=== PATIENT | male | born 1975 | race Caucasian/White ===

== ENCOUNTER 2018-08-05 19:42 | Emergency (ER) | payer MEDICAID ==
[~2018-08-05] VITALS: Ht 182.9 cm; Wt 137.3 kg
[~2018-08-05 19:42] MED LIST: AZIT250T PO; BETA45OI2 TOP; CYCL-1 PO; GABA-532 PO; METF500T PO; MICO5POW6 TOP; PANT40TA4 PO
[2018-08-05 19:45] VITALS: BP 157/95
[2018-08-05] MEDS ORDERED: IBUP-1984 PO (21:15)
[2018-08-05] MEDS ORDERED: HYDROcodone/acetaminophen 10/325mg tab PO ONE (21:20)
== END 2018-08-05 21:29 | disposition home or self-care (01) ==
LOC: ER 19:43
DX: M25.521 Pain in right elbow (principal); E78.00 Pure hypercholesterolemia, unspecified; I10 Essential (primary) hypertension; E11.9 Type 2 diabetes mellitus without complications; Z98.890 Other specified postprocedural states; Z79.2 Long term (current) use of antibiotics; Z79.899 Other long term (current) drug therapy
CPT/HCPCS: 73080; 99283

== ENCOUNTER 2018-11-09 01:13 | Emergency (ER) | payer MEDICAID ==
[~2018-11-09] VITALS: Ht 182.9 cm; Wt 138.6 kg
[2018-11-09] MEDS ORDERED: HYDROcodone/acetaminophen 5mg/325mg tablet PO ONE (03:50)
--- NOTE | 2018-11-09 05:06 | NUR ---
Jez henderson in ED - 11/09/18 at 0[address] by [facility]CK Pt to [facility], escorted by Chris Carter RN and Gurwinder EDUARDO for assistance with pt transfer.
--- NOTE | 2018-11-09 06:01 | NUR ---
[facility] Ohlfs assessed splint after placed by PCT Will, giving approval for d/c. Will educated pt on use of crutches with pt return demo.
[2018-11-09 06:10] VITALS: BP 145/60
== END 2018-11-09 06:13 | disposition home or self-care (01) ==
LOC: ER 01:14
DX: S93.402A Sprain of unspecified ligament of left ankle, initial encounter (principal); I10 Essential (primary) hypertension; E78.00 Pure hypercholesterolemia, unspecified; E11.9 Type 2 diabetes mellitus without complications; W18.30XA Fall on same level, unspecified, initial encounter; Y93.01 Activity, walking, marching and hiking; Y92.89 Other specified places as the place of occurrence of the external cause; Y99.8 Other external cause status
CPT/HCPCS: 29515; 73610; 73630; 99283

== ENCOUNTER 2019-03-27 18:30 | Emergency (ER) | payer MEDICAID, OTHER ==
[~2019-03-27] VITALS: Ht 182.9 cm; Wt 137.3 kg
[2019-03-27 20:31] VITALS: BP 155/78
--- NOTE | 2019-03-27 20:31 | NUR ---
PT PLACED IN C-COLLAR PRIOR TO ASSUMING CARE.
[2019-03-27] MEDS: ketorolac trometh inj. 60 MG/2 ML VIAL IM ONE ×2 (20:43→20:45)
[2019-03-27] MEDS ORDERED: ibuprofen tablet 400 MG TABLET PO ONE (20:50)
== END 2019-03-27 21:32 | disposition home or self-care (01) ==
LOC: ER 18:31
DX: S16.1XXA Strain of muscle, fascia and tendon at neck level, initial encounter (principal); E78.00 Pure hypercholesterolemia, unspecified; I10 Essential (primary) hypertension; E11.9 Type 2 diabetes mellitus without complications; Z98.890 Other specified postprocedural states; Z79.2 Long term (current) use of antibiotics; Z79.899 Other long term (current) drug therapy; V43.92XA Unspecified car occupant injured in collision with other type car in traffic accident, initial encounter; Y93.89 Activity, other specified; Y92.410 Unspecified street and highway as the place of occurrence of the external cause; Y99.8 Other external cause status
CPT/HCPCS: 72040; 99283; J1885

== ENCOUNTER 2019-07-24 13:22 | Emergency (ER) | payer MEDICAID ==
[~2019-07-24] VITALS: Ht 182.9 cm; Wt 136.2 kg
[2019-07-24 15:20] LABS: BASOPHILS % (AUTO) 0.4 % (0-1); EOSINOPHILS # (AUTO) 0.1 X10'3 (0-0.9); EOSINOPHILS % (AUTO) 1.1 % (0-6); HEMOGLOBIN 15.6 g/dl (14.0-17.9); LYMPHOCYTES # (AUTO) 2.2 X10'3 (1.1-4.8); LYMPHOCYTES % (AUTO) 21.9 % (21-51); MEAN CORPUSCULAR HEMOGLOBIN 31.2 PG (27.0-31.0); MEAN CORPUSCULAR HGB CONC 34.6 g/dL (33.0-36.5); MEAN CORPUSCULAR VOLUME 90.1 FL (78-98); MEAN PLATELET VOLUME 10.6 FL (7.4-10.4); MONOCYTES # (AUTO) 0.7 X10'3 (0-0.9); NEUTROPHILS # (AUTO) 7.1 X10'3 (1.8-7.7); NEUTROPHILS % (AUTO) 69.6 % (42-75); PLATELET COUNT 191 X10'3 (140-440); WHITE BLOOD COUNT 10.1 X10'3 (4.5-11.0)
[2019-07-24 15:35] LABS: ALANINE AMINOTRANSFERASE 57 U/L (12-78); ALBUMIN 3.7 G/DL (3.4-5.0); ALBUMIN/GLOBULIN RATIO 1.1 (1.1-1.5); ALKALINE PHOSPHATASE 90 IU/L (46-116); ANION GAP 8 (8-16); BILIRUBIN,TOTAL 0.5 MG/DL (0.1-1.0); BLOOD UREA NITROGEN 14 MG/DL (7-18); BUN/CREATININE RATIO 12.7 (5.4-32.0); CALCIUM 8.9 MG/DL (8.5-10.1); CHLORIDE 100 MMOL/L (99-107); SODIUM 137 MMOL/L (135-145); TOTAL CARBON DIOXIDE 28.9 MMOL/L (24-32); TOTAL PROTEIN 7.2 G/DL (6.4-8.2); eGFR 72 ML/MIN
[2019-07-24 15:40] LABS: GLUCOSE 428 MG/DL (70-104); POTASSIUM 4.2 MMOL/L (3.5-5.1)
[2019-07-24] MEDS ORDERED: normal saline 1000ml 1,000 ML IV ONE ×2 (15:40→16:15)
[2019-07-24] MEDS ORDERED: insulin regular, human 10 units/0.1 ml syringe IV ONE (15:40)
[2019-07-24 15:47] LABS: ASPARTATE AMINO TRANSFERASE 36 U/L (10-37)
[2019-07-24 16:18] LABS: LARGE PLATELETS FEW; PLATELET ESTIMATE NORMAL
[2019-07-24 18:07] VITALS: BP 169/115
== END 2019-07-24 18:03 | disposition home or self-care (01) ==
LOC: ER 13:23
DX: E11.65 Type 2 diabetes mellitus with hyperglycemia (principal); R07.89 Other chest pain; E78.00 Pure hypercholesterolemia, unspecified; I10 Essential (primary) hypertension; Z98.890 Other specified postprocedural states; Z79.84 Long term (current) use of oral hypoglycemic drugs; Z79.899 Other long term (current) drug therapy
CPT/HCPCS: 36415; 71045; 80053; 82948; 84484; 85025; 93005; 96361; 96374; 99284; J1815; J7030

== ENCOUNTER 2020-03-13 08:14 | Emergency (ER) | payer MEDICAID, OTHER ==
[~2020-03-13] VITALS: Ht 185.4 cm; Wt 127.3 kg
[2020-03-13 10:02] VITALS: BP 160/88
== END 2020-03-13 10:03 | disposition home or self-care (01) ==
LOC: ER 08:15
DX: S20.212A Contusion of left front wall of thorax, initial encounter (principal); E78.00 Pure hypercholesterolemia, unspecified; E11.9 Type 2 diabetes mellitus without complications; I10 Essential (primary) hypertension; Z98.890 Other specified postprocedural states; Z79.2 Long term (current) use of antibiotics; Z79.899 Other long term (current) drug therapy; W19.XXXA Unspecified fall, initial encounter; Y93.89 Activity, other specified; Y92.89 Other specified places as the place of occurrence of the external cause; Y99.8 Other external cause status
CPT/HCPCS: 71045; 99284

== ENCOUNTER 2020-06-19 21:22 | Emergency (ER) | payer MEDICAID, OTHER ==
[~2020-06-19] VITALS: Ht 182.9 cm; Wt 111.0 kg
[~2020-06-19 21:22] MED LIST changes: -PANT40TA4 PO; +PANT40TA54 PO
[2020-06-19 21:31] VITALS: BP 183/103
[2020-06-19] MEDS ORDERED: acetaminophen 325mg tablet PO ONE (22:05)
[2020-06-19] MEDS ORDERED: CEPH500C5 PO (22:05)
== END 2020-06-19 22:44 | disposition home or self-care (01) ==
LOC: ER 21:23
DX: M79.671 Pain in right foot (principal); E78.00 Pure hypercholesterolemia, unspecified; I10 Essential (primary) hypertension; E11.9 Type 2 diabetes mellitus without complications; Z98.890 Other specified postprocedural states; Z79.2 Long term (current) use of antibiotics; Z79.899 Other long term (current) drug therapy
CPT/HCPCS: 99283